=== PATIENT | female | born 1955 | race Caucasian/White ===

== ENCOUNTER 2017-11-10 15:38 | Emergency (ER) | payer OTHER ==
[~2017-11-10] VITALS: Ht 167.6 cm; Wt 93.0 kg
[2017-11-10 16:10] VITALS: BP 144/85
[2017-11-10] MEDS ORDERED: OFLO5DRO RIGHTEYE (17:07)
--- NOTE | 2017-11-10 17:08 | PHYS DOC ---
Past History Additional Past Medical Histor: previous history of diabetes mellitus Additional Past Surgical Histo: Gastric bypass surgery Smoking: Non-smoker Adult General Chief Complaint Chief Complaint: EYE PROBLEMS HPI HPI 62-year-old female patient complaining of eye mild pain and very mild blurred vision since yesterday with tearing . Patient had no change of her vision or nausea and vomiting but complaining of mild problem with her balance. Patient had recent URI symptoms and denies eye yellow discharge. Patient had appointment with her manager regional tomorrow at 10 AM. Review of Systems Review of Systems Constitutional: Denies fever or chills [] Eyes: Denies change in visual acuity, reports eye pain and redness] HENT: Reports URI symptoms Cardiovascular: No additional information not addressed in HPI [] GI: Denies abdominal pain, nausea, vomiting, bloody stools or diarrhea [] : Denies dysuria or hematuria [] Musculoskeletal: Denies back pain or joint pain [] Integument: Denies rash or skin lesions [] Neurologic: Denies headache, focal weakness or sensory changes [] Endocrine: Denies polyuria or polydipsia [] All other systems were reviewed and found to be within normal limits, except as documented in this note. Physical Exam Physical Exam Constitutional: Well developed, well nourished, no acute distress, non-toxic appearance. [] HENT: Normocephalic, atraumatic, bilateral external ears normal, oropharynx moist, no oral exudates, nose normal. [] Eyes: PERRLA, EOMI, no discharge right eye with mild erythema without tenderness , cornea is clear without injury, left eye pressure is 7 and right eye patient is 11. [] Neck: Normal range of motion, no tenderness, supple, no stridor. [] Cardiovascular:Heart rate regular rhythm, no murmur [] Lungs & Thorax: Bilateral breath sounds clear to auscultation [ Neurologic: Alert and oriented X 3, normal motor function, normal sensory function, no focal deficits noted. [] Psychologic: Affect normal, judgement normal, mood normal. [] EKG EKG [] Radiology/Procedures Radiology/Procedures [] Course & Med Decision Making Course & Med Decision Making Evaluation of patient in ER showed 62-year-old female patient with complaining of right eye marked pain and redness and blurred vision since yesterday. Patient had recent URI symptoms with conjunctival erythema. And had normal eye pressure in June 2017 and has appointment with her manager regional for tomorrow. pressure of eyes was unremarkable. Plan discharge patient home with diagnoses of right eye conjunctivitis and prescription of Ocuflox. Dragon Disclaimer Dragon Disclaimer This electronic medical record was generated, in whole or in part, using a voice recognition dictation system. Departure Departure: Impression: Primary Impression: Conjunctivitis, right eye Disposition: ADMITTED INPATIENT (At 1705) Condition: STABLE Referrals: MARCELA MARIE DO, [facility] (PCP) Patient Instructions: Bacterial Conjunctivitis Additional Instructions: Follow-up with your manager regional appointment tomorrow Return to ER if not getting better Scripts Ofloxacin (OCUFLOX) 5 Ml Drops 2 DROP RIGHTEYE QID, #1 BOTTLE Prov: ANGELICA STEVENS MD 11/10/17 ANGELICA STEVENS MD Nov 10, 2017 17:08
== END 2017-11-10 17:22 | disposition other institution (70) ==
LOC: ER 15:38
DX: H10.9 Unspecified conjunctivitis (principal); E11.9 Type 2 diabetes mellitus without complications
CPT/HCPCS: 99285

== ENCOUNTER 2021-04-08 10:26 | Emergency (ER) | payer OTHER ==
[~2021-04-08] VITALS: Ht 167.6 cm; Wt 99.0 kg
[~2021-04-08 10:26] MED LIST: OFLO5DRO RIGHTEYE
[2021-04-08] MEDS ORDERED: ASPIRIN CHEWABLE 81 MG TABLET. PO ONE (10:45)
[2021-04-08 11:10] LABS: BASO # 0.1 x10^3/uL (0.0-0.2); BASO % 1 % (0-3); EOS # 0.2 x10^3/uL (0.0-0.7); EOS % 2 % (0-3); HEMATOCRIT 36.9 % (36.0-47.0); HEMOGLOBIN 12.6 g/dL (12.0-15.5); LYMPH # 2.1 x10^3/uL (1.0-4.8); LYMPH % 31 % (24-48); MEAN CORPUSCULAR HEMOGLOBIN 30 pg (25-35); MEAN CORPUSCULAR HGB CONC 34 g/dL (31-37); MEAN CORPUSCULAR VOLUME 87 fL (79-100); MONO # 0.6 x10^3/uL (0.0-1.1); MONO % 9 % (0-9); NEUT % 58 % (31-73); PLATELET COUNT 269 x10^3/uL (140-400); RED BLOOD COUNT 4.25 x10^6/uL (3.50-5.40); RED CELL DISTRIBUTION WIDTH 13.6 % (11.5-14.5); WHITE BLOOD COUNT 6.9 x10^3/uL (4.0-11.0)
--- NOTE | 2021-04-08 11:12 | PHYS DOC ---
Past History Past Medical History: Arthritis, Asthma, Fibromyalgia, High Cholesterol, Hypertension Additional Past Medical Histor: vertigo Past Surgical History: Cholecystectomy, Gastric Bypass, Hysterectomy, Tubal ligation Additional Past Surgical Histo: Gastric bypass surgery, nasal polyps removed, ORIF left tib/fib Smoking: Non-smoker Alcohol Use: Occasionally Drug Use: None General Adult EDM: Chief Complaint: CHEST PAIN HPI: HPI: 66-year female presents with chest pain. She woke up this morning around 7:30 AM and had chest pain. It was a 5 out of 10 "warm pressure". It has decreased to a 3 out of 10 at this time. She was mildly short of breath but denies diaphoresis. She has not had a stress test or cardiac cath in 10 years. She is not sure if it is better or worse with exertion. It does feel more painful with breathing. She denies any trauma or overuse. No known history of cardiac disease. She has a family history of cardiac disease. Denies fever or chills. Review of Systems: Review of Systems: Constitutional: Denies fever or chills Eyes: Denies change in visual acuity HENT: Denies nasal congestion or sore throat Respiratory: Denies cough or shortness of breath Cardiovascular: Denies chest pain or edema GI: Denies abdominal pain, nausea, vomiting, bloody stools or diarrhea : Denies dysuria Musculoskeletal: Denies back pain or joint pain Integument: Denies rash Neurologic: Denies headache, focal weakness or sensory changes Endocrine: Denies polyuria or polydipsia Lymphatic: Denies swollen glands Psychiatric: Denies depression or anxiety Current Medications: Current Meds: Current Medications Medications (Trade) Dose Ordered Sig/[place] Start Time Stop Time Status Last Admin Dose Admin Aspirin (Aspirin Chewable) 324 mg 1X ONCE 04/08/21 10:45 04/08/21 10:46 DC Allergies: Allergies: Allergies Coded Allergies Type Severity Reaction Last Updated Verified Ocbozwm-Dpy-Afn Reductase Inhibitor Allergy Intermediate 04/08/21 Yes Sulfa (Sulfonamide Antibiotics) Allergy Unknown 04/08/21 Yes levofloxacin Allergy Unknown 04/08/21 Yes Physical Exam: PE: Constitutional: Well developed, well nourished, no acute distress, non-toxic appearance. [] HENT: Normocephalic, atraumatic, bilateral external ears normal, oropharynx moist, no oral exudates, nose normal. [] Eyes: PERRLA, EOMI, conjunctiva normal, no discharge. [] Neck: Normal range of motion, no tenderness, supple, no stridor. [] Cardiovascular:Heart rate regular rhythm, no murmur [] Lungs & Thorax: Bilateral breath sounds clear to auscultation [] Abdomen: Bowel sounds normal, soft, no tenderness, no masses, no pulsatile masses. [] Skin: Warm, dry, no erythema, no rash. [] Back: No tenderness, no CVA tenderness. [] Extremities: No tenderness, no cyanosis, no clubbing, ROM intact, no edema. [] Neurologic: Alert and oriented X 3, normal motor function, normal sensory function, no focal deficits noted. [] Psychologic: Affect normal, judgement normal, mood normal. [] Current Patient Data: Vital Signs: Vital Signs Date Time Temp Pulse Resp B/P (MAP) Pulse Ox O2 Delivery O2 Flow Rate FiO2 04/08/21 10:30 98.0 82 22 143/78 (99) 95 EKG: EKG: Sinus rhythm, rate 84, normal axis, no ST elevation or depression. [] Radiology/Procedures: Radiology/Procedures: [] Impressions: EXAM: Chest, single view. HISTORY: Chest pain. COMPARISON: None. FINDINGS: A frontal view of the chest obtained. There is no infiltrate, pleural effusion or pneumothorax. The heart is normal in size. IMPRESSION: No acute pulmonary finding. Electronically signed by: Winnie Nova MD (04/08/2021 11:31 AM) [facility] DICTATED AND SIGNED BY: WINNIE NOVA MD DATE: 04/08/21 1131 CC: LONNIE PADILLA DO; GUILHERME CULVER DO ~MTH0 0 Heart Score: C/O Chest Pain: Yes HEART Score for Chest Pain: HEART Score for Chest Pain Response (Comments) Value History Slighlty/Non-Suspicious 0 ECG Normal 0 Age >45 - < 65 1 Risk Factors 1 or 2 Risk Factors 1 Troponin < Normal Limit 0 Total 2 Risk Factors: Risk Factors: DM, Current or recent (<one month) smoker, HTN, HLP, family history of CAD, obesity. Risk Scores: Score 0 - 3: 2.5% MACE over next 6 weeks - Discharge Home Score 4 - 6: 20.3% MACE over next 6 weeks - Admit for Clinical Observation Score 7 - 10: 72.7% MACE over next 6 weeks - Early Invasive Strategies Course & Med Decision Making: Course & Med Decision Making Pertinent Labs and Imaging studies reviewed. (See chart for details) The patient's EKG is unremarkable. Her labs are unremarkable. Her troponin is negative. Her chest x-ray is negative for acute findings. The patient is feeling much better at this time. We discussed admission for further observation versus going home. The patient would prefer to go home. I feel this is completely reasonable. Her heart score is a 2. She is stable for discharge at this time. The patient will return to the ED if her symptoms come back or new symptoms develop. [] Dragon Disclaimer: Dragon Disclaimer: This electronic medical record was generated, in whole or in part, using a voice recognition dictation system. Departure Departure: Impression: Primary Impression: Chest pain Qualified Codes: R07.9 - Chest pain, unspecified Disposition: HOME / SELF CARE / HOMELESS Condition: STABLE Referrals: MARCELA MARIE DO, [facility] (PCP) Patient Instructions: Chest Pain (Nonspecific), [id number] LONNIE PADILLA DO Apr 08, 2021 11:12
[2021-04-08 11:20] LABS: CREATININE 0.8 mg/dL (0.6-1.0); GFR 72.2; POTASSIUM 3.5 mmol/L (3.5-5.1)
[2021-04-08 11:22] LABS: ALBUMIN 3.2 g/dL (3.4-5.0); ALBUMIN/GLOBULIN RATIO 0.9 (1.0-1.7); TOTAL BILIRUBIN 0.3 mg/dL (0.2-1.0); TOTAL PROTEIN 6.8 g/dL (6.4-8.2)
--- NOTE | 2021-04-08 11:34 | RAD ---
EXAM: Chest, single view. HISTORY: Chest pain. COMPARISON: None. FINDINGS: A frontal view of the chest obtained. There is no infiltrate, pleural effusion or pneumotho rax. The heart is normal in size. IMPRESSION: No acute pulmonary finding. Electronically signed by: Winnie Partida MD (04/08/2021 11:31 AM) [facility]
[2021-04-08 12:23] LABS: BILIRUBIN,URINE NEG (NEG); CLARITY,URINE CLEAR; COLOR,URINE YELLOW; GLUCOSE,URINE NEG (NEG); NITRITE,URINE NEG (NEG); UROBILINOGEN,URINE 0.2 mg/dL (0.2 mg/dL)
[2021-04-08 12:24] LABS: BACTERIA,URINE 0 /HPF (0-FEW); RBC,URINE 0 /HPF (0-2); WBC,URINE 0 /HPF (0-4)
[2021-04-08 12:30] VITALS: BP 125/79
== END 2021-04-08 12:58 | disposition home or self-care (01) ==
LOC: ER 10:26
DX: R07.89 Other chest pain (principal); R06.02 Shortness of breath; M19.90 Unspecified osteoarthritis, unspecified site; J45.909 Unspecified asthma, uncomplicated; M79.7 Fibromyalgia; E78.00 Pure hypercholesterolemia, unspecified; I10 Essential (primary) hypertension; Z98.84 Bariatric surgery status; Z90.49 Acquired absence of other specified parts of digestive tract; Z90.710 Acquired absence of both cervix and uterus; Z98.51 Tubal ligation status; Z88.2 Allergy status to sulfonamides; Z88.1 Allergy status to other antibiotic agents; Z88.8 Allergy status to other drugs, medicaments and biological substances
CPT/HCPCS: 36415; 71045; 80053; 81001; 84484; 85025; 93005; 99285